=== PATIENT | female | born 1995 | race Caucasian/White ===

== ENCOUNTER 2024-06-13 04:07 | Day surgery (SDC) | payer OTHER ==
[~2024-06-13] VITALS: Ht 152.4 cm; Wt 60.1 kg
[2024-06-13] VITALS (204 sets, daily range): BP systolic 79–131; BP diastolic 47–109
[2024-06-13] MEDS ORDERED: CYANOCOBALAMIN 500 MCG/TAB ( B12) PO PRN (07:30)
[2024-06-13] MEDS ORDERED: ALBUTEROL SULFATE 2.5 MG VIAL IN PRN (07:30)
[2024-06-13] MEDS ORDERED: cloNIDine HCL 0.1 MG/TAB PO PRN (07:30)
[2024-06-13] MEDS ORDERED: FAMOTIDINE 20 MG/TAB PO PRN (07:30)
[2024-06-13] MEDS ORDERED: SCOPOLAMINE 1.5 MG DIS TD PRN (07:30)
[2024-06-13] MEDS ORDERED: LACTATED RINGER'S 1,000 ML IV PRN ×3 (07:30→19:00)
[2024-06-13] MEDS ORDERED: PANTOPRAZOLE SODIUM Sesquihydr 40 MG/TAB PO PRN (07:30)
[2024-06-13] MEDS ORDERED: diazePAM 5 MG/TAB PO PRN ×2 (07:30→08:30)
[2024-06-13] MEDS ORDERED: ASCORBIC ACID 4,000 MG in SODIUM CHLORIDE 0.9% 1,000 ML IV SCH (08:00)
[2024-06-13 08:35] LABS: BASO% 0.6 % (0-3); EOS% 5.4 % (0-8); HEMATOCRIT 35.2 % (37.0-47.0); HEMOGLOBIN 11.3 g/dl (12.0-16.0); LYMPH% 50.2 % (15-41); MEAN CELL VOLUME 82.8 fL CALC (80.0-100.0); MEAN CORPUSCULAR HGB 26.6 pG CALC (26.0-32.0); MEAN CORPUSCULAR HGB CONC 32.1 g/dL CAL (32.0-36.0); NEUT# 1.38 thou/uL (2.00-7.15); NEUT% 28.8 % (42-76); RED BLOOD COUNT 4.25 mill/uL (4.20-5.60); RED CELL DISTRI WIDTH 14.6 % (11.5-15.5)
[2024-06-13 08:56] LABS: ALBUMIN 3.7 g/dL (3.2-5.0); BILIRUBIN, TOTAL 0.3 mg/dL (0.02-1.3); CREATININE 0.8 mg/dL (0.5-1.0); POTASSIUM 4.2 mmol/l (3.5-5.1); TOTAL PROTEIN 6.7 g/dL (6.3-8.2)
[2024-06-13] MEDS ORDERED: LAMICTAL100 M1 PO (09:25)
[2024-06-13] MEDS ORDERED: XANAX1 MG PO (09:26)
[2024-06-13] MEDS ORDERED: IMITREX25 MG PO (09:27)
[2024-06-13] MEDS ORDERED: DiphenhydrAMINE HCL 50 MG/ML SDV IV PRN (09:30)
[2024-06-13] MEDS ORDERED: PROPOFOL 100 ML IV PRN (09:30)
[2024-06-13] MEDS ORDERED: ONDANSETRON HCl 4 MG/2 ML SDV IV PRN ×3 (09:30→19:00)
[2024-06-13] MEDS ORDERED: SUCCINYLCHOLINE CHLORIDE 20 MG/ML 10ML VIAL IV PRN (09:30)
[2024-06-13] MEDS ORDERED: DEXAMETHASONE SODIUM PHOSPHATE PF 10 MG/ML SDV IV PRN ×2 (09:30→19:00)
[2024-06-13] MEDS ORDERED: POTASSIUM CHLORIDE 10 MEQ/50 ML BAG IV PRN (09:30)
[2024-06-13] MEDS ORDERED: LIDOCAINE HCL 1% (10MG/ML) 100 MG/10 ML MDV VT PRN ×2 (09:30)
[2024-06-13] MEDS ORDERED: ROCURONIUM BROMIDE 10 MG/ML 5ML VIAL IV PRN (09:30)
[2024-06-13] MEDS ORDERED: PROPOFOL 10 MG/ML 100ML VIAL IV PRN (09:30)
[2024-06-13] MEDS ORDERED: diazePAM 5 MG/TAB VT PRN (09:30)
[2024-06-13] MEDS ORDERED: THIAMINE HCL 100 MG/ML 2ML VIAL IV PRN (09:30)
[2024-06-13] MEDS ORDERED: MAGNESIUM SULFATE HEPTAHYDRATE 100 ML IV PRN (09:30)
[2024-06-13] MEDS ORDERED: NALTREXONE HCL 50 MG/TAB VT PRN (09:30)
[2024-06-13] MEDS ORDERED: OCTREOTIDE ACETATE 100 MCG/VIAL SDV SC PRN (09:30)
[2024-06-13] MEDS ORDERED: STERILE WATER FOR IRRIGATION 1,000 ML BTL IR PRN (09:30)
[2024-06-13] MEDS ORDERED: cloNIDine HCL 0.1 MG/TAB VT PRN (09:30)
[2024-06-13] MEDS ORDERED: MIDAZOLAM HCL 2 MG/2 ML VIAL IV PRN (09:30)
[2024-06-13] MEDS ORDERED: cloNIDine HYDROCHLORIDE 100 MCG/ML 10 ML INJ IV PRN (09:30)
[2024-06-13] MEDS ORDERED: LIDOCAINE HCL 1% (10MG/ML) 100 MG/10 ML MDV IV PRN (09:30)
[2024-06-13] MEDS ORDERED: CLONIDINE0.1 MG PO (15:09)
[2024-06-13] MEDS ORDERED: NALTREXONE50 MG PO (15:09)
[2024-06-13] MEDS ORDERED: KLONOPIN2 MG PO (15:10)
[2024-06-13] MEDS ORDERED: ACETAMINOPHEN 1,000 MG/100 ML VIAL IV SCH (17:00)
[2024-06-13] MEDS ORDERED: LIDOCAINE HCL 1% (10MG/ML) 100 MG/10 ML MDV IV SCH (17:00)
[2024-06-13] MEDS ORDERED: KETOROLAC TROMETHAMINE 30 MG/ML SDV IV SCH (17:00)
[2024-06-13] MEDS ORDERED: HALOPERIDOL LACTATE 5 MG/ML SDV IV PRN (19:00)
[2024-06-13] MEDS ORDERED: PROMETHAZINE HCL 25 MG in SODIUM CHLORIDE 0.9% 50 ML IV PRN (19:00)
[2024-06-13] MEDS ORDERED: ACETAMINOPHEN 1,000 MG/100 ML VIAL IV PRN (19:00)
[2024-06-13] MEDS ORDERED: ACETAMINOPHEN 500 MG TAB PO PRN (19:00)
[2024-06-13] MEDS ORDERED: PROMETHAZINE HCL 12.5 MG in SODIUM CHLORIDE 0.9% 50 ML IV PRN (19:00)
[2024-06-13] MEDS ORDERED: KETOROLAC TROMETHAMINE 30 MG/ML SDV IV PRN (19:00)
[2024-06-13] MEDS ORDERED: diazePAM 10 MG/2 ML VIAL IV PRN (21:00)
[2024-06-13] MEDS ORDERED: PATIENT' OWN MED CONTROLLED 1 EA DOSE IV PRN (21:00)
[2024-06-13] MEDS ORDERED: cloNIDine HCL 0.1 MG/TAB PO SCH (23:00)
[2024-06-13] MEDS ORDERED: clonazePAM 1 MG/TAB PO SCH (23:00)
[2024-06-14] MEDS ORDERED: cloNIDine HCL 0.1 MG/TAB PO PRN (04:00)
[2024-06-14] MEDS ORDERED: clonazePAM 1 MG/TAB PO PRN ×2 (04:00→08:00)
[2024-06-14 05:02] VITALS: BP 120/85
[2024-06-14 05:39] LABS: HEMATOCRIT 36.1 % (37.0-47.0); IMMATURE GRANULOCYTES 0.3 % (0.0-5.0); LYMPH% 6.4 % (15-41); MEAN CELL VOLUME 80.6 fL CALC (80.0-100.0); MEAN CORPUSCULAR HGB 26.8 pG CALC (26.0-32.0); MEAN CORPUSCULAR HGB CONC 33.2 g/dL CAL (32.0-36.0); MONO% 2.1 % (2-13); NEUT# 10.89 thou/uL (2.00-7.15); NEUT% 91.2 % (42-76); RED BLOOD COUNT 4.48 mill/uL (4.20-5.60); RED CELL DISTRI WIDTH 14.7 % (11.5-15.5)
[2024-06-14 05:46] LABS: ALBUMIN 3.5 g/dL (3.2-5.0); BILIRUBIN, TOTAL 0.3 mg/dL (0.02-1.3); CREATININE 0.7 mg/dL (0.5-1.0); MAGNESIUM 2.3 mg/dL (1.6-2.3); TOTAL PROTEIN 6.5 g/dL (6.3-8.2)
[2024-06-14] MEDS ORDERED: PANTOPRAZOLE SODIUM Sesquihydr 40 MG/TAB PO SCH (08:00)
[2024-06-14] MEDS ORDERED: NALTREXONE HCL 50 MG/TAB PO SCH (08:00)
[2024-06-14] MEDS ORDERED: ACETAMINOPHEN 325 MG/TAB PO SCH (08:00)
[2024-06-14] MEDS ORDERED: cloNIDine HCL 0.1 MG/TAB PO SCH (08:00)
[2024-06-14 08:25] VITALS: BP 121/78
[2024-06-14] MEDS ORDERED: Cholecalciferol 2,000 UNIT/TAB PO PRN (09:00)
[2024-06-14] MEDS ORDERED: MAGNESIUM OXIDE 400 MG/TAB PO PRN (09:00)
[2024-06-14] MEDS ORDERED: ACETAMINOPHEN 500 MG TAB PO PRN (09:00)
== END 2024-06-14 16:32 | disposition home or self-care (01) | DRG 897 ==
LOC: ANR 04:07 → MS2 04:07 → ANR 09:00 → MS2 18:08 → ANR 06-14 16:32
PROVIDERS: ATTEND Anesthesiology
DX: F11.20 Opioid dependence, uncomplicated (principal)
CPT/HCPCS: J0131; J1100; J2354; J3475

== ENCOUNTER 2024-06-16 11:48 | Observation (INO) | payer OTHER ==
[~2024-06-16 11:48] MED LIST: CLONIDINE0.1 MG PO; IMITREX25 MG PO; KLONOPIN2 MG PO; LAMICTAL100 M1 PO; NALTREXONE50 MG PO; XANAX1 MG PO
[2024-06-16] MEDS ORDERED: ONDANSETRON HCl 4 MG/2 ML SDV IV SCH (12:00)
[2024-06-16] MEDS ORDERED: LACTATED RINGER'S 1,000 ML IV SCH (13:00)
[2024-06-16 13:30] VITALS: BP 138/88
[2024-06-16] MEDS ORDERED: BISMUTH SUBSALICYLATE 262 MG CHW PO PRN (13:30)
[2024-06-16 14:59] VITALS: BP 120/84
[2024-06-16 15:10] LABS: BASO% 0.2 % (0-3); HEMATOCRIT 41.3 % (37.0-47.0); HEMOGLOBIN 13.6 g/dl (12.0-16.0); LYMPH% 19.7 % (15-41); MEAN CELL VOLUME 79.9 fL CALC (80.0-100.0); MEAN CORPUSCULAR HGB 26.3 pG CALC (26.0-32.0); MEAN CORPUSCULAR HGB CONC 32.9 g/dL CAL (32.0-36.0); MONO% 6.3 % (2-13); NEUT# 7.33 thou/uL (2.00-7.15); NEUT% 73.8 % (42-76); RED BLOOD COUNT 5.17 mill/uL (4.20-5.60); RED CELL DISTRI WIDTH 14.8 % (11.5-15.5)
[2024-06-16 15:15] LABS: CREATININE 0.7 mg/dL (0.5-1.0); POTASSIUM 3.8 mmol/l (3.5-5.1); TOTAL PROTEIN 7.8 g/dL (6.3-8.2)
[2024-06-16 16:10] LABS: ALBUMIN 4.4 g/dL (3.2-5.0); BILIRUBIN, TOTAL 0.8 mg/dL (0.02-1.3)
[2024-06-16] MEDS ORDERED: LACTATED RINGER'S 1,000 ML IV PRN (17:00)
[2024-06-16] MEDS ORDERED: CLARIFY DOSE PO PRN (17:40)
[2024-06-16] MEDS ORDERED: ALPRAZolam 1 MG/TAB PO PRN (17:50)
[2024-06-16 18:38] LABS: MAGNESIUM 2.4 mg/dL (1.6-2.3)
[2024-06-16 18:54] VITALS: BP 129/90
[2024-06-16] MEDS ORDERED: POTASSIUM CHLORIDE 20 MEQ/TAB PO SCH (19:00)
[2024-06-16 19:20] VITALS: BP 129/90
[2024-06-16] MEDS ORDERED: cloNIDine HCL 0.1 MG/TAB PO SCH (21:00)
[2024-06-16] MEDS ORDERED: clonazePAM 1 MG/TAB PO SCH (21:00)
[2024-06-17 04:22] VITALS: BP 131/91
[2024-06-17 04:54] VITALS: BP 131/91
[2024-06-17] MEDS ORDERED: NALTREXONE HCL 50 MG/TAB PO SCH (05:00)
[2024-06-17 06:54] VITALS: BP 128/93
== END 2024-06-17 09:07 | disposition left against medical advice (07) | DRG 641 ==
LOC: ANR 11:48 → MS2 12:15
PROVIDERS: ADMIT Anesthesiology; ATTEND Anesthesiology
DX: E86.0 Dehydration (principal); R53.83 Other fatigue